=== PATIENT | female | born 1960 | race American Indian/Alaskan Native ===

== ENCOUNTER 2017-04-22 11:47 | Emergency (ER) | payer SELFPAY ==
[2017-04-22 12:54] LABS: Basophils % (Auto) 0.9 % (0.0-1.8); Eosinophils % (Auto) 4.1 % (0.0-4.3); Hematocrit 36.4 % (30.3-42.9); Hemoglobin 11.7 gm/dl (10.1-14.3); Mean Corpuscular HGB Conc 32 % (30-34); Mean Corpuscular Hemoglobin 27 pg (28-32); Mean Corpuscular Volume 84 fl (79-97); Platelet Count 184 K/mm3 (140-440); Red Blood Count 4.34 M/mm3 (3.65-5.03); Red Cell Distribution Width 14.4 % (13.2-15.2)
[2017-04-22 13:08] LABS: Urine Drugs of Abuse Note Disclamer
[2017-04-22 13:30] LABS: Anion Gap 13 mmol/L; BUN/Creatinine Ratio 21.42; Blood Urea Nitrogen 15 mg/dL (7-17); Calcium 8.6 mg/dL (8.4-10.2); Carbon Dioxide 27 mmol/L (22-30); Chloride 107.8 mmol/L (98-107); Glucose 86 mg/dL (65-100); Potassium 4.4 mmol/L (3.6-5.0); Sodium 143 mmol/L (137-145)
--- NOTE | 2017-04-22 19:27 | Emergency Department Report ---
ED Psych HPI - General Chief Complaint: Psych Stated Complaint: DEPRESSION Time Seen by Provider: 04/22/17 18:11 Source: patient Mode of arrival: Ambulatory - History of Present Illness Initial Comments: Patient is a 56-year-old female past medical history of opiate abuse who presents with body aches and pains. She states her body aches are a 6 out of 10. Occur all throughout her body nothing makes it better or worse. She states that she is also nauseous. She says since been a couple days and she's used Percocet or oxycodone. She states that she is use of Percocet and oxycodone for her depression and that she would like to stop. - Related Data Previous Rx's Medication Instructions Recorded Last Taken Type Acetaminophen/Codeine [Tylenol #3] 1 tab PO Q4HR PRN #14 tablet 04/28/16 Unknown Rx Cyclobenzaprine [Flexeril] 10 mg PO TID PRN #20 tablet 04/28/16 Unknown Rx predniSONE [Deltasone] 50 mg PO QDAY #5 tab 04/28/16 Unknown Rx traMADol [Ultram 50 MG tab] 50 mg PO BID PRN #14 tablet 06/28/16 Unknown Rx cloNIDine [Catapres] 0.1 mg PO BID PRN #20 tablet 04/22/17 Unknown Rx hydrOXYzine HCL [Atarax] 25 mg PO Q6HR PRN #20 tablet 04/22/17 Unknown Rx Allergies Allergy/AdvReac Type Severity Reaction Status Date / Time No Known Allergies Allergy Verified 04/28/16 01:18 ED Review of Systems ROS: Stated complaint: DEPRESSION Other details as noted in HPI Constitutional: denies: chills, fever Eyes: denies: eye pain, eye discharge, vision change ENT: denies: ear pain, throat pain Respiratory: denies: cough, shortness of breath, wheezing Cardiovascular: denies: chest pain, palpitations Endocrine: no symptoms reported Gastrointestinal: denies: abdominal pain, nausea, diarrhea Genitourinary: denies: urgency, dysuria, discharge Musculoskeletal: arthralgia, myalgia. denies: back pain, joint swelling Skin: denies: rash, lesions Neurological: denies: headache, weakness, paresthesias Psychiatric: denies: anxiety, depression Hematological/Lymphatic: denies: easy bleeding, easy bruising ED Past Medical Hx - Past Medical History Additional medical history: sciatica - ight leg pain - Surgical History Additional Surgical History: Partial Hyst - Social History Smoking Status: Current Every Day Smoker Substance Use Type: None - Medications Home Medications: Home Medications Medication Instructions Recorded Confirmed Last Taken Type Acetaminophen/Codeine [Tylenol #3] 1 tab PO Q4HR PRN #14 tablet 04/28/16 Unknown Rx Cyclobenzaprine [Flexeril] 10 mg PO TID PRN #20 tablet 04/28/16 Unknown Rx predniSONE [Deltasone] 50 mg PO QDAY #5 tab 04/28/16 Unknown Rx traMADol [Ultram 50 MG tab] 50 mg PO BID PRN #14 tablet 06/28/16 Unknown Rx cloNIDine [Catapres] 0.1 mg PO BID PRN #20 tablet 04/22/17 Unknown Rx hydrOXYzine HCL [Atarax] 25 mg PO Q6HR PRN #20 tablet 04/22/17 Unknown Rx ED Physical Exam - General Limitations: No Limitations General appearance: alert, in no apparent distress - Head Head exam: Present: atraumatic, normocephalic - Eye Eye exam: Present: normal appearance - ENT ENT exam: Present: mucous membranes moist - Neck Neck exam: Present: normal inspection - Respiratory Respiratory exam: Present: normal lung sounds bilaterally. Absent: respiratory distress - Cardiovascular Cardiovascular Exam: Present: regular rate, normal rhythm. Absent: systolic murmur, diastolic murmur, rubs, gallop - GI/Abdominal GI/Abdominal exam: Present: soft, normal bowel sounds - Extremities Exam Extremities exam: Present: normal inspection - Back Exam Back exam: Present: normal inspection - Neurological Exam Neurological exam: Present: alert, oriented X3 - Psychiatric Psychiatric exam: Present: normal affect, normal mood - Skin Skin exam: Present: warm, dry, intact, normal color. Absent: rash ED Course Vital Signs 04/22/17 04/22/17 12:18 20:40 Temperature 98.4 F 98 F Pulse Rate 67 84 Respiratory 18 Rate Blood Pressure 131/86 Blood Pressure 145/72 [Left] O2 Sat by Pulse 100 Oximetry ED Medical Decision Making - Lab Data Result diagrams: 04/22/17 12:28 04/22/17 12:28 Lab Results 04/22/17 04/22/17 04/22/17 Range/Units 12:28 12:28 12:28 WBC 6.0 (4.5-11.0) K/mm3 RBC 4.34 (3.65-5.03) M/mm3 Hgb 11.7 (10.1-14.3) gm/dl Hct 36.4 (30.3-42.9) % MCV 84 (79-97) fl MCH 27 L (28-32) pg MCHC 32 (30-34) % RDW 14.4 (13.2-15.2) % Plt Count 184 (140-440) K/mm3 Lymph % (Auto) 37.4 H (13.4-35.0) % [place] % (Auto) 7.3 (0.0-7.3) % Eos % (Auto) 4.1 (0.0-4.3) % Baso % (Auto) 0.9 (0.0-1.8) % Lymph # 2.2 (1.2-5.4) K/mm3 [place] # 0.4 (0.0-0.8) K/mm3 Eos # 0.2 (0.0-0.4) K/mm3 Baso # 0.1 (0.0-0.1) K/mm3 Seg Neutrophils % 50.3 (40.0-70.0) % Seg Neutrophils # 3.0 (1.8-7.7) K/mm3 Sodium 143 (137-145) mmol/L Potassium 4.4 (3.6-5.0) mmol/L Chloride 107.8 H (98-107) mmol/L Carbon Dioxide 27 (22-30) mmol/L Anion Gap 13 mmol/L BUN 15 (7-17) mg/dL Creatinine 0.7 (0.7-1.2) mg/dL Estimated GFR > 60 ml/min BUN/Creatinine Ratio 21.42 % Glucose 86 (65-100) mg/dL Calcium 8.6 (8.4-10.2) mg/dL Urine Opiates Screen Urine Methadone Screen Ur Barbiturates Screen Ur Phencyclidine Scrn Ur Amphetamines Screen U Benzodiazepines Scrn Urine Cocaine Screen U Marijuana (THC) Screen Drugs of Abuse Note Plasma/Serum Alcohol < 0.01 (0-0.07) gm% 04/22/17 Range/Units 12:41 WBC (4.5-11.0) K/mm3 RBC (3.65-5.03) M/mm3 Hgb (10.1-14.3) gm/dl Hct (30.3-42.9) % MCV (79-97) fl MCH (28-32) pg MCHC (30-34) % RDW (13.2-15.2) % Plt Count (140-440) K/mm3 Lymph % (Auto) (13.4-35.0) % [place] % (Auto) (0.0-7.3) % Eos % (Auto) (0.0-4.3) % Baso % (Auto) (0.0-1.8) % Lymph # (1.2-5.4) K/mm3 [place] # (0.0-0.8) K/mm3 Eos # (0.0-0.4) K/mm3 Baso # (0.0-0.1) K/mm3 Seg Neutrophils % (40.0-70.0) % Seg Neutrophils # (1.8-7.7) K/mm3 Sodium (137-145) mmol/L Potassium (3.6-5.0) mmol/L Chloride (98-107) mmol/L Carbon Dioxide (22-30) mmol/L Anion Gap mmol/L BUN (7-17) mg/dL Creatinine (0.7-1.2) mg/dL Estimated GFR ml/min BUN/Creatinine Ratio % Glucose (65-100) mg/dL Calcium (8.4-10.2) mg/dL Urine Opiates Screen Presumptive negative Urine Methadone Screen Presumptive negative Ur Barbiturates Screen Presumptive negative Ur Phencyclidine Scrn Presumptive negative Ur Amphetamines Screen Presumptive negative U Benzodiazepines Scrn Presumptive negative Urine Cocaine Screen Presumptive negative U Marijuana (THC) Screen Presumptive negative Drugs of Abuse Note Disclamer Plasma/Serum Alcohol (0-0.07) gm% - Medical Decision Making Chief medical diagnosis: Opiate withdrawal Differential medical diagnoses substance induced mood disorder, depression, metabolic abnormality CBC, CMP, urine drug screen and 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 Mental health worker has a cyst patient patient does not need a 1013. Patient has no suicidal or homicidal ideation she just wants resources to help her with her opiate withdrawal. I will give patient Atarax and clonidine. Discussed plan with patient and she agrees. Patient is alert and oriented 4 and expresses goal seeking behavior. Critical care attestation.: If time is entered above; I have spent that time in minutes in the direct care of this critically ill patient, excluding procedure time. ED Disposition Clinical Impression: Opiate withdrawal Disposition: DC- TO HOME OR SELFCARE Is pt being admited?: No Does the pt Need Aspirin: No Condition: Stable Instructions: Narcotic Abuse (ED) Prescriptions: cloNIDine [Catapres] 0.1 mg PO BID PRN #20 tablet PRN Reason: withdrawl hydrOXYzine HCL [Atarax] 25 mg PO Q6HR PRN #20 tablet PRN Reason: Agitation Referrals: [facility] [Outside] - 3-5 Days SOMMER LEDBETTER MD [Staff Physician] - 3-5 Days
[2017-04-22 23:32] VITALS: BP 145/72
== END 2017-04-22 23:42 | disposition home or self-care (01) ==
LOC: ED 11:47
DX: F11.23 Opioid dependence with withdrawal (principal); F17.200 Nicotine dependence, unspecified, uncomplicated; Z90.710 Acquired absence of both cervix and uterus; Z79.899 Other long term (current) drug therapy
CPT/HCPCS: 36415; 80048; 80307; 85025; 99284; G0480; 80320

== ENCOUNTER 2017-05-14 15:07 | Emergency (ER) | payer SELFPAY ==
[2017-05-14 15:24] VITALS: BP 124/70
[2017-05-14 16:06] LABS: Basophils % (Auto) 1.1 % (0.0-1.8); Eosinophils % (Auto) 5.4 % (0.0-4.3); Hemoglobin 12.9 gm/dl (10.1-14.3); Mean Corpuscular HGB Conc 33 % (30-34); Mean Corpuscular Hemoglobin 27 pg (28-32); Mean Corpuscular Volume 81 fl (79-97); Platelet Count 211 K/mm3 (140-440); Red Blood Count 4.79 M/mm3 (3.65-5.03); Red Cell Distribution Width 14.3 % (13.2-15.2); White Blood Count 5.9 K/mm3 (4.5-11.0)
[2017-05-14 16:12] LABS: Anion Gap 15 mmol/L; BUN/Creatinine Ratio 24; Blood Urea Nitrogen 19 mg/dL (7-17); Calcium 9.4 mg/dL (8.4-10.2); Carbon Dioxide 25 mmol/L (22-30); Glucose 93 mg/dL (65-100); Potassium 4.2 mmol/L (3.6-5.0); Sodium 140 mmol/L (137-145)
== END 2017-05-14 22:00 | disposition left against medical advice (07) ==
LOC: ED 15:07
DX: R07.9 Chest pain, unspecified (principal); Z53.21 Procedure and treatment not carried out due to patient leaving prior to being seen by health care provider
CPT/HCPCS: 36415; 80048; 84484; 85025; 93005; 93010

== ENCOUNTER 2017-05-15 23:40 | Emergency (ER) | payer SELFPAY ==
[2017-05-16] MEDS ORDERED: MOTRIN PO ONE (07:29)
--- NOTE | 2017-05-16 07:29 | Emergency Department Report ---
HPI - General Chief Complaint: Sore Throat Time Seen by Provider: 05/16/17 06:59 - HPI HPI: Patient here report that she has a fever, pain in throat, right ear and left flank pain. She reports frequency and burning with urination with strong smelling urine. Denies any blood in her urine. Denies any shortness of breath or chest pain. She says she took [id number] cough and cold medicine but it didn't help her. Pain to left flank is 8 out of 10 and pain to right ear is 8 out of 10 and pain to her throat is 10 of 10. Denies any drooling or difficulty swallowing. Denies any facial pain or pressure. Denies any abdominal or lower back pain. Pain with urination burning pain but better without urinating. Pain is worse with swallowing and eating and. Flank pain is constant. ED Past Medical Hx - Past Medical History Previous Medical History?: Yes Additional medical history: sciatica - ight leg pain - Surgical History Past Surgical History?: Yes Additional Surgical History: Partial Hyst, x4 - Family History Family history: hypertension - Social History Smoking Status: Light Tobacco Smoker Substance Use Type: None - Medications Home Medications: Home Medications Medication Instructions Recorded Confirmed Last Taken Type Acetaminophen/Codeine [Tylenol #3] 1 tab PO Q4HR PRN #14 tablet 04/28/16 Unknown Rx Cyclobenzaprine [Flexeril] 10 mg PO TID PRN #20 tablet 04/28/16 Unknown Rx predniSONE [Deltasone] 50 mg PO QDAY #5 tab 04/28/16 Unknown Rx traMADol [Ultram 50 MG tab] 50 mg PO BID PRN #14 tablet 06/28/16 Unknown Rx cloNIDine [Catapres] 0.1 mg PO BID PRN #20 tablet 04/22/17 Unknown Rx hydrOXYzine HCL [Atarax] 25 mg PO Q6HR PRN #20 tablet 04/22/17 Unknown Rx Cetirizine HCl [ZyrTEC] 10 mg PO QAM #14 capsule 05/16/17 Unknown Rx Fluticasone [Flonase] 1 spray NS QDAY #1 bottle 05/16/17 Unknown Rx Ibuprofen [Motrin] 600 mg PO Q8H PRN #15 tablet 05/16/17 Unknown Rx Sulfamethoxazole/Trimethoprim 1 each PO BID #20 tablet 05/16/17 Unknown Rx [Bactrim DS TAB] ED Review of Systems ROS: Stated complaint: THROAT, R EAR & LEFT SIDE PAIN Other details as noted in HPI Comment: All other systems reviewed and negative Constitutional: fever. denies: chills, malaise, weakness Eyes: denies: eye pain, eye discharge, vision change ENT: ear pain, throat pain. denies: dental pain, congestion Respiratory: cough. denies: orthopnea, shortness of breath, SOB with exertion, SOB at rest, stridor, wheezing Cardiovascular: denies: chest pain, palpitations, dyspnea on exertion, edema, syncope Gastrointestinal: abdominal pain, other (left flank pain). denies: nausea, vomiting, diarrhea, constipation, hematemesis, melena, hematochezia Genitourinary: dysuria, frequency. denies: urgency, hematuria, discharge Musculoskeletal: denies: back pain, joint swelling, arthralgia, myalgia Skin: denies: rash Neurological: denies: headache, weakness, numbness, paresthesias, confusion, abnormal gait, vertigo Physical Exam - Physical Exam Vital Signs: Vital Signs 05/16/17 00:22 Temperature 99 F Pulse Rate 75 Respiratory 16 Rate Blood Pressure 144/75 O2 Sat by Pulse 100 Oximetry General: A 56-year-old female well-nourished well-developed in no acute distress. Physical Exam: Head: Normocephalic, atraumatic, no abrasion, no bruising and no contusion. Eyes: Biateral pupils equal and reactive to light, bilateral EOM intact.. Bilateral conjunctival and sclera without injection, normal accommodation. Ears: Bilateral EAC without any redness drainage or swelling, bilateral TM just said without erythema .bilateral tragus is normal and nontender. No auricular abnormality. No Mastoid bones tenderness. Nose: Moist, erythema and congested with clear drainage. Maxillary or frontal sinus tenderness. Mouth: Positive pharyngeal erythema. Uvula is midline and oral airways patent. Moist and tongue is normal. No peritonsillar abscess. Abdomen: Non-Tender to palpation in all quadrants, negative CVA tenderness bilaterally, normal bowel sounds in all quadrants. No guarding no rebound tenderness Neck: Supple,No Cervical adenopathy, full range of motion and no C-spine tenderness. No swelling or tracheal deviation Cardiovascular: S1, S2. Regular rate and rhythm. No murmur. Capillary refill is less then 3 seconds. Lungs: Clear to auscultate bilaterally. No rhonchi, wheezes or rales. No chest wall tenderness. Normal work of breathing MSK: Strength 5/5 in all extremities. No joint deformity or crepitus. Normal inspection. Full range of motion to all extremities Extremities: No clubbing, cyanosis or edema. +2 pulses. No neurovascular compromise Skin: Clean, dry and intact. No rash or lesions. Psych: Normal mood and behavior. ED Course Vital Signs 05/16/17 00:22 Temperature 99 F Pulse Rate 75 Respiratory 16 Rate Blood Pressure 144/75 O2 Sat by Pulse 100 Oximetry - Reevaluation(s) Reevaluation #1: 05/16/17 07:58 Patient given Rocephin 1 g IM in the emergency room to cover urinary tract infection and she was also given Motrin 800 mg for sore throat and right ear pain. No adverse reaction noted. ED Medical Decision Making - Lab Data Lab Results 05/16/17 Range/Units 07:23 Urine Color Yellow (Yellow) Urine Turbidity Clear (Clear) Urine pH 5.0 (5.0-7.0) Ur Specific [place] 1.024 (1.003-1.030) Urine Protein <15 mg/dl (Negative) mg/dL Urine Glucose (UA) Neg (Negative) mg/dL Urine Ketones Neg (Negative) mg/dL Urine Blood Neg (Negative) Urine Nitrite Neg (Negative) Urine Bilirubin Neg (Negative) Urine Urobilinogen < 2.0 (<2.0) mg/dL Ur Leukocyte Esterase Mod (Negative) Urine WBC (Auto) 11.0 H (0.0-6.0) /HPF Urine RBC (Auto) 8.0 (0.0-6.0) /HPF U Epithel Cells (Auto) 5.0 (0-13.0) /HPF Urine Bacteria (Auto) 2+ (Negative) /HPF Urine Mucus 2+ /HPF Urine culture pending Strep culture pending Rapid Strep negative - Medical Decision Making ED course: Sent here report that she has cold symptoms to include sore throat, fever and right ear pain. She was thought to have upper respiratory tract infection which is viral in nature. This was explained to patient and she remains afebrile in the emergency room. I also informed her that her strep test is negative. I explained to her that I'll send her home on Motrin for sore throat and right ear pain, Zyrtec and Flonase. Given Motrin 800 mg in emergency room for pain. Had complained of urinary symptoms to include urinary frequency, dysuria and foul-smelling urine .I also stated to her that her urine is positive for bladder infection. She has bacteria, white blood cell and moderate leukocyte Estrace. She is given Rocephin 1 g IM in emergency room to cover UTI and will be placed on Bactrim DS. Patient had voiced that she had taken Macrobid before but it does not agree with her stomach so I chose to place her on Bactrim DS. Patient is stable discharge home in stable condition and voices understanding of discharge instructions with prescription for Motrin , Flonase, Zyrtec and Bactrim DS. I explained to her that she will need to follow up with her primary care physician and 3 days and if she doesn't have one that she'll need to follow up at [facility] to call this morning to schedule an appointment. Critical care attestation.: If time is entered above; I have spent that time in minutes in the direct care of this critically ill patient, excluding procedure time. ED Disposition Clinical Impression: Acute cystitis without hematuria, Left flank pain, Dysuria, Viral upper respiratory tract infection with cough, Otalgia of right ear Pharyngitis Qualifiers: Pharyngitis/tonsillitis etiology: unspecified etiology Qualified Code(s): J02.9 - Acute pharyngitis, unspecified Disposition: TO HOME OR SELFCARE Is pt being admited?: No Does the pt Need Aspirin: No Condition: Stable Instructions: Upper Respiratory Infection (ED), Dysuria (ED), Urinary Tract Infection in Women (ED), Earache (ED), Pharyngitis (ED) Additional Instructions: increase your fluid intake Primary care physician Takes Zyrtec and Flonase for upper respiratory tract infection Take Motrin as prescribed for pain Take Bactrim DS antibiotic. Please take as prescribed and take all medication Prescriptions: Cetirizine HCl [ZyrTEC] 10 mg PO QAM #14 capsule Fluticasone [Flonase] 1 spray NS QDAY #1 bottle Ibuprofen [Motrin] 600 mg PO Q8H PRN #15 tablet PRN Reason: Pain Sulfamethoxazole/Trimethoprim [Bactrim DS TAB] 1 each PO BID #20 tablet Referrals: [facility] [Outside] - 05/20/17 PRIMARY CARE [Primary Care Provider] - 05/20/17 Forms: Work/School Release Form(ED)
[2017-05-16 07:45] LABS: Bacteria,Urine 2+ /HPF (Negative); Bilirubin,Urine NEG (Negative); Blood,Urine NEG (Negative); Ketones,Urine NEG (Negative); Leukocyte Esterase,Urine MOD (Negative); Mucus,Urine 2+ /HPF; Nitrite,Urine NEG (Negative); Protein,Urine <15 mg/dL mg/dL (Negative); Urobilinogen,Urine < 2.0 mg/dL (<2.0)
[2017-05-16] MEDS ORDERED: XYLOCAINE 1% MPF 5 mL INFILTRATI ONE (07:51)
[2017-05-16] MEDS ORDERED: ROCEPHIN IM STA (07:51)
[2017-05-16 08:23] VITALS: BP 150/59
== END 2017-05-16 08:20 | disposition home or self-care (01) ==
LOC: ED 23:40
DX: N30.90 Cystitis, unspecified without hematuria (principal); J06.9 Acute upper respiratory infection, unspecified; J02.9 Acute pharyngitis, unspecified
CPT/HCPCS: 81001; 87086; 87116; 87430; 96372; 99283; J0696

== ENCOUNTER 2018-11-28 16:04 | Emergency (ER) | payer OTHER ==
[2018-11-28 16:26] VITALS: BP 154/67
--- NOTE | 2018-11-28 16:28 | Emergency Department Report ---
ED ENT HPI - General Chief complaint: Dental/Oral Stated complaint: FACE SWOLLEN/TOOTHACHE Source: patient Mode of arrival: Ambulatory Limitations: No Limitations - History of Present Illness Initial comments: 58 y/o female comes in on right upper tooth pain times 3 days. Having right side facial pain. Is a smoker. No fever. Is aware of dental problems. NKDA. PMH none. Meds none. NKDA. MD complaint: tooth pain -: days(s) (3) Location: tooth # (5,3) Severity: severe Severity scale (0 -10): 10 Quality: sharp Consistency: constant Improves with: other medication Context- Dental: history of dental caries, poor dental care Associated Symptoms: toothache - Related Data Previous Rx's Medication Instructions Recorded Last Taken Type Cyclobenzaprine [Flexeril] 10 mg PO TID PRN #20 tablet 04/28/16 Unknown Rx predniSONE [Deltasone] 50 mg PO QDAY #5 tab 04/28/16 Unknown Rx traMADol [Ultram 50 MG tab] 50 mg PO BID PRN #14 tablet 06/28/16 Unknown Rx cloNIDine [Catapres] 0.1 mg PO BID PRN #20 tablet 04/22/17 Unknown Rx hydrOXYzine HCL [Atarax] 25 mg PO Q6HR PRN #20 tablet 04/22/17 Unknown Rx Cetirizine HCl [ZyrTEC] 10 mg PO QAM #14 capsule 05/16/17 Unknown Rx Fluticasone [Flonase] 1 spray NS QDAY #1 bottle 05/16/17 Unknown Rx Sulfamethoxazole/Trimethoprim 1 each PO BID #20 tablet 05/16/17 Unknown Rx [Bactrim DS TAB] Acetaminophen/Codeine [Tylenol 1 tab PO Q4HR PRN #14 tablet 11/28/18 Unknown Rx /Codeine # 3 tab] Amoxicillin [Amoxicillin TAB] 875 mg PO BID #20 tablet 11/28/18 Unknown Rx Ibuprofen [Motrin 600 MG tab] 600 mg PO Q8H PRN #15 tablet 11/28/18 Unknown Rx Allergies Allergy/AdvReac Type Severity Reaction Status Date / Time No Known Allergies Allergy Verified 04/28/16 01:18 ED Dental HPI - General Chief complaint: Dental/Oral Stated complaint: FACE SWOLLEN/TOOTHACHE Source: patient Mode of arrival: Ambulatory Limitations: No Limitations - Related Data Previous Rx's Medication Instructions Recorded Last Taken Type Cyclobenzaprine [Flexeril] 10 mg PO TID PRN #20 tablet 04/28/16 Unknown Rx predniSONE [Deltasone] 50 mg PO QDAY #5 tab 04/28/16 Unknown Rx traMADol [Ultram 50 MG tab] 50 mg PO BID PRN #14 tablet 06/28/16 Unknown Rx cloNIDine [Catapres] 0.1 mg PO BID PRN #20 tablet 04/22/17 Unknown Rx hydrOXYzine HCL [Atarax] 25 mg PO Q6HR PRN #20 tablet 04/22/17 Unknown Rx Cetirizine HCl [ZyrTEC] 10 mg PO QAM #14 capsule 05/16/17 Unknown Rx Fluticasone [Flonase] 1 spray NS QDAY #1 bottle 05/16/17 Unknown Rx Sulfamethoxazole/Trimethoprim 1 each PO BID #20 tablet 05/16/17 Unknown Rx [Bactrim DS TAB] Acetaminophen/Codeine [Tylenol 1 tab PO Q4HR PRN #14 tablet 11/28/18 Unknown Rx /Codeine # 3 tab] Amoxicillin [Amoxicillin TAB] 875 mg PO BID #20 tablet 11/28/18 Unknown Rx Ibuprofen [Motrin 600 MG tab] 600 mg PO Q8H PRN #15 tablet 11/28/18 Unknown Rx Allergies Allergy/AdvReac Type Severity Reaction Status Date / Time No Known Allergies Allergy Verified 04/28/16 01:18 ED Review of Systems ROS: Stated complaint: FACE SWOLLEN/TOOTHACHE Other details as noted in HPI Comment: All other systems reviewed and negative ED Past Medical Hx - Past Medical History Previous Medical History?: No Additional medical history: sciatica - ight leg pain - Surgical History Past Surgical History?: Yes Additional Surgical History: Partial Hyst, x4 - Social History Smoking Status: Light Tobacco Smoker Substance Use Type: None - Medications Home Medications: Home Medications Medication Instructions Recorded Confirmed Last Taken Type Cyclobenzaprine [Flexeril] 10 mg PO TID PRN #20 tablet 04/28/16 Unknown Rx predniSONE [Deltasone] 50 mg PO QDAY #5 tab 04/28/16 Unknown Rx traMADol [Ultram 50 MG tab] 50 mg PO BID PRN #14 tablet 06/28/16 Unknown Rx cloNIDine [Catapres] 0.1 mg PO BID PRN #20 tablet 04/22/17 Unknown Rx hydrOXYzine HCL [Atarax] 25 mg PO Q6HR PRN #20 tablet 04/22/17 Unknown Rx Cetirizine HCl [ZyrTEC] 10 mg PO QAM #14 capsule 05/16/17 Unknown Rx Fluticasone [Flonase] 1 spray NS QDAY #1 bottle 05/16/17 Unknown Rx Sulfamethoxazole/Trimethoprim 1 each PO BID #20 tablet 05/16/17 Unknown Rx [Bactrim DS TAB] Acetaminophen/Codeine [Tylenol 1 tab PO Q4HR PRN #14 tablet 11/28/18 Unknown Rx /Codeine # 3 tab] Amoxicillin [Amoxicillin TAB] 875 mg PO BID #20 tablet 11/28/18 Unknown Rx Ibuprofen [Motrin 600 MG tab] 600 mg PO Q8H PRN #15 tablet 11/28/18 Unknown Rx ED Physical Exam - General Limitations: No Limitations (5,3) General appearance: alert, in no apparent distress - Head Head exam: Present: atraumatic, normocephalic - Eye Eye exam: Present: EOMI - ENT ENT exam: Present: mucous membranes moist, other (right side mild swelling of face) - Expanded ENT Exam Expanded Teeth exam: Present: dental tenderness # - Neck Neck exam: Present: full ROM - Neurological Exam Neurological exam: Present: alert, oriented X3, normal gait - Psychiatric Psychiatric exam: Present: normal affect, normal mood - Skin Skin exam: Present: warm, dry, intact, normal color. Absent: rash ED Medical Decision Making - Medical Decision Making Complete antibiotic pain medication as prescribed follow up with your Dentist. Critical care attestation.: If time is entered above; I have spent that time in minutes in the direct care of this critically ill patient, excluding procedure time. ED Disposition Clinical Impression: Pain, dental Disposition: DC-01 TO HOME OR SELFCARE Is pt being admited?: No Does the pt Need Aspirin: No Condition: Stable Instructions: Toothache (ED) Additional Instructions: Complete antibiotics as prescribed pain medication as prescribed. Follow up with a dentist in the next 3-4 days. Prescriptions: Amoxicillin [Amoxicillin TAB] 875 mg PO BID #20 tablet Ibuprofen [Motrin 600 MG tab] 600 mg PO Q8H PRN #15 tablet PRN Reason: Pain Acetaminophen/Codeine [Tylenol /Codeine # 3 tab] 1 tab PO Q4HR PRN #14 tablet PRN Reason: Pain Referrals: [facility] [Outside] - 3-5 Days [facility] [Outside] - 3-5 Days [facility] [Outside] - 3-5 Days
== END 2018-11-28 16:47 | disposition home or self-care (01) ==
LOC: ED 16:04
DX: K08.89 Other specified disorders of teeth and supporting structures (principal); F17.200 Nicotine dependence, unspecified, uncomplicated; Z90.710 Acquired absence of both cervix and uterus; Z79.899 Other long term (current) drug therapy
CPT/HCPCS: 99282

== ENCOUNTER 2019-09-04 19:26 | Inpatient (IN) | payer OTHER ==
[2019-09-04] MEDS ORDERED: ASPIRIN 325 MG TAB PO ONE (21:25)
--- NOTE | 2019-09-04 21:30 | Event Note ---
ED Screening Note Date of service: 09/04/19 Time: 21:27 ED Screening Note: Patient is a 59 yo AA female who is a tobacco smoker but otherwise with no other medical history who presents to the ED with c/o acute onset persistent intermittent left sided chest pain with palpitations for the last 12 hours. Patient also c/o nausea and vomiting for 24 hours. Patient denies dyspnea, dizziness, abdominal pain, cough, fever, chills or neck pain and syncope. In triage the patient is alert and oriented x3 and is in no acute distress. This initial assessment/diagnostic orders/clinical plan/treatment(s) is/are subject to change based on patients health status, clinical progression and re-assessment by fellow clinical providers in the ED. Further treatment and workup at subsequent clinical providers discretion. Patient/guardian urged not to elope from the ED as their condition may be serious if not clinically assessed and managed. Initial orders include: cbc, cmp, troponin, chest x-ray, BNP, PT, PTT, d-dimer, aspirin
--- NOTE | 2019-09-04 21:54 | XRay Report ---
CHEST 1 VIEW INDICATION: MAIN: chest pain; Left CP started today, pain does not radiate. COMPARISON: None. FINDINGS: Support devices: None. Heart: Within normal limits. Lungs/Pleura: No acute air space or interstitial disease. Additional findings: None. IMPRESSION: No acute abnormality. Signer Name: Jagdish Ghosh MD Signed: 09/04/2019 9:50 PM Workstation Name: [id number]
[2019-09-04 21:58] LABS: Basophils # (Auto) 0.1 K/mm3 (0.0-0.1); Eosinophils # (Auto) 0.2 K/mm3 (0.0-0.4); Eosinophils % (Auto) 2.7 % (0.0-4.3); Hematocrit 40.3 % (30.3-42.9); Hemoglobin 13.1 gm/dl (10.1-14.3); Lymphocytes # (Auto) 2.9 K/mm3 (1.2-5.4); Lymphocytes % (Auto) 38.2 % (13.4-35.0); Mean Corpuscular HGB Conc 33 % (30-34); Mean Corpuscular Volume 81 fl (79-97); Monocytes # (Auto) 0.6 K/mm3 (0.0-0.8); Monocytes % (Auto) 8.7 % (0.0-7.3); Platelet Count 226 K/mm3 (140-440); Red Cell Distribution Width 14.5 % (13.2-15.2)
[2019-09-04 22:02] LABS: INR 0.99 (0.87-1.13)
[2019-09-04 22:03] LABS: Partial Thromboplastin Time 27.9 Sec. (24.2-36.6)
[2019-09-04 22:11] LABS: Alanine Aminotransferase 10 units/L (7-56); Albumin 3.3 g/dL (3.9-5); BUN/Creatinine Ratio 15; Blood Urea Nitrogen 12 mg/dL (7-17); Hemolysis Index 5
--- NOTE | 2019-09-05 01:35 | Emergency Department Report ---
ED Chest Pain HPI - General Chief Complaint: Chest Pain Stated Complaint: CHEST PAIN/HEART PALPITATIONS Source: patient Mode of arrival: Ambulatory Limitations: No Limitations - History of Present Illness Initial Comments: Patient is a 59 yo AA female who is a tobacco smoker but otherwise with no other medical history who presents to the ED with c/o acute onset persistent intermittent left sided chest pain with palpitations for the last 12 hours. Patient also c/o nausea and vomiting for 24 hours. Patient describes the chest pain as sharp, pressure-like tightness that does not radiate to any other area. Patient also states that she is a heavy coffee drinker, and that she smokes one pack a day. Patient denies dyspnea, dizziness, abdominal pain, cough, fever, chills or neck pain and syncope. -: Sudden, hour(s) (12) Onset: during rest, awoke with symptoms Pain Location: substernal, left chest Pain Radiation: none Severity: moderate Severity scale (0 -10): 6 Quality: tightness, sharp, pressure Consistency: intermittent Improves With: nothing Worsens With: nothing re: nausea, vomting. denies: diaphoresis, dyspnea, sense of impending doom, other Other Symptoms: palpitations. denies: cough, fever, syncope, rash, acid taste in mouth, leg swelling, burping, other Treatments Prior to Arrival: none Aspirin use within the Past 7 Days: (0) No - Related Data On Oral Contraceptives: No Previous Rx's Medication Instructions Recorded Last Taken Type Cyclobenzaprine [Flexeril] 10 mg PO TID PRN #20 tablet 04/28/16 Unknown Rx predniSONE [Deltasone] 50 mg PO QDAY #5 tab 04/28/16 Unknown Rx traMADoL [Ultram 50 MG tab] 50 mg PO BID PRN #14 tablet 06/28/16 Unknown Rx cloNIDine [Catapres] 0.1 mg PO BID PRN #20 tablet 04/22/17 Unknown Rx hydrOXYzine HCL [Atarax] 25 mg PO Q6HR PRN #20 tablet 04/22/17 Unknown Rx Cetirizine HCl [ZyrTEC] 10 mg PO QAM #14 capsule 05/16/17 Unknown Rx Fluticasone [Flonase] 1 spray NS QDAY #1 bottle 05/16/17 Unknown Rx Sulfamethoxazole/Trimethoprim 1 each PO BID #20 tablet 05/16/17 Unknown Rx [Bactrim DS TAB] Acetaminophen/Codeine [Tylenol 1 tab PO Q4HR PRN #14 tablet 11/28/18 Unknown Rx /Codeine # 3 tab] Amoxicillin [Amoxicillin TAB] 875 mg PO BID #20 tablet 11/28/18 Unknown Rx Ibuprofen [Motrin 600 MG tab] 600 mg PO Q8H PRN #15 tablet 11/28/18 Unknown Rx Allergies Allergy/AdvReac Type Severity Reaction Status Date / Time No Known Allergies Allergy Verified 04/28/16 01:18 Heart Score - HEART Score History: Slightly suspicious EKG: Normal Age: 45-65 Risk factors: 1-2 risk factors Troponin: < normal limit HEART Score: 2 - Critical Actions Critical Actions: 0-3 pts:0.9-1.7%risk of adverse cardiac event.Candidate for discharge ED Review of Systems ROS: Stated complaint: CHEST PAIN/HEART PALPITATIONS Other details as noted in HPI Constitutional: denies: chills, fever Eyes: denies: eye pain, eye discharge, vision change ENT: denies: ear pain, throat pain Respiratory: denies: cough, shortness of breath, wheezing Cardiovascular: chest pain, palpitations. denies: dyspnea on exertion, syncope, paroxysmal nocturnal dyspnea Endocrine: no symptoms reported Gastrointestinal: nausea, vomiting. denies: abdominal pain, diarrhea Genitourinary: denies: urgency, dysuria, discharge Musculoskeletal: denies: back pain, joint swelling, arthralgia Skin: denies: rash, lesions Neurological: denies: headache, weakness, paresthesias Psychiatric: denies: anxiety, depression Hematological/Lymphatic: denies: easy bleeding, easy bruising ED Past Medical Hx - Past Medical History Previous Medical History?: Yes Additional medical history: sciatica - ight leg pain - Surgical History Past Surgical History?: Yes Additional Surgical History: Partial Hyst, x4 - Social History Smoking Status: Current Every Day Smoker Substance Use Type: None - Medications Home Medications: Home Medications Medication Instructions Recorded Confirmed Last Taken Type Cyclobenzaprine [Flexeril] 10 mg PO TID PRN #20 tablet 04/28/16 Unknown Rx predniSONE [Deltasone] 50 mg PO QDAY #5 tab 04/28/16 Unknown Rx traMADoL [Ultram 50 MG tab] 50 mg PO BID PRN #14 tablet 06/28/16 Unknown Rx cloNIDine [Catapres] 0.1 mg PO BID PRN #20 tablet 04/22/17 Unknown Rx hydrOXYzine HCL [Atarax] 25 mg PO Q6HR PRN #20 tablet 04/22/17 Unknown Rx Cetirizine HCl [ZyrTEC] 10 mg PO QAM #14 capsule 05/16/17 Unknown Rx Fluticasone [Flonase] 1 spray NS QDAY #1 bottle 05/16/17 Unknown Rx Sulfamethoxazole/Trimethoprim 1 each PO BID #20 tablet 05/16/17 Unknown Rx [Bactrim DS TAB] Acetaminophen/Codeine [Tylenol 1 tab PO Q4HR PRN #14 tablet 11/28/18 Unknown Rx /Codeine # 3 tab] Amoxicillin [Amoxicillin TAB] 875 mg PO BID #20 tablet 11/28/18 Unknown Rx Ibuprofen [Motrin 600 MG tab] 600 mg PO Q8H PRN #15 tablet 11/28/18 Unknown Rx ED Physical Exam - General Limitations: No Limitations General appearance: alert, in no apparent distress - Head Head exam: Present: atraumatic, normocephalic, normal inspection - Eye Eye exam: Present: normal appearance, PERRL, EOMI Pupils: Present: normal accommodation - ENT ENT exam: Present: normal exam, normal orophraynx, mucous membranes moist, TM's normal bilaterally, normal external ear exam - Neck Neck exam: Present: normal inspection, full ROM - Respiratory Respiratory exam: Present: normal lung sounds bilaterally. Absent: respiratory distress, wheezes, rales, rhonchi, chest wall tenderness, accessory muscle use, decreased breath sounds - Cardiovascular Cardiovascular Exam: Present: regular rate, normal rhythm, normal heart sounds. Absent: systolic murmur, diastolic murmur, rubs, gallop - GI/Abdominal GI/Abdominal exam: Present: soft, normal bowel sounds. Absent: tenderness, guarding, rebound, hyperactive bowel sounds, hypoactive bowel sounds, mass - Extremities Exam Extremities exam: Present: normal inspection, full ROM, normal capillary refill - Back Exam Back exam: Present: normal inspection, full ROM. Absent: tenderness, CVA tenderness (R), CVA tenderness (L), muscle spasm, paraspinal tenderness, vertebral tenderness - Neurological Exam Neurological exam: Present: alert, oriented X3, CN II-XII intact, normal gait, reflexes normal - Psychiatric Psychiatric exam: Present: normal affect, normal mood, anxious - Skin Skin exam: Present: warm, dry, intact, normal color. Absent: rash ED Course Vital Signs 09/04/19 19:49 Temperature 98.8 F Pulse Rate 85 Respiratory 14 Rate Blood Pressure 131/70 O2 Sat by Pulse 100 Oximetry MICHELLE score - Michelle Score Age > 65: (0) No Aspirin use within the Past 7 Days: (0) No 3 or more CAD Risk Factors: (0) No 2 or more Angina events in past 24 hrs: (1) Yes Known CAD with more than 50% Stenosis: (0) No Elevated Cardiac Markers: (0) No ST Deviation Greater than 0.5mm: (0) No MICHELLE Score: 1 ED Medical Decision Making - Lab Data Result diagrams: 09/04/19 21:40 09/04/19 21:40 - EKG Data EKG shows normal: sinus rhythm Rate: normal - EKG Data Interpretation: normal EKG 09/05/19 01:34 EKG shows normal sinus rhythm with a ventricular rate of 72 bpm, no ST or T-wave abnormalities. - Radiology Data Radiology results: report reviewed, image reviewed Chest x-ray shows no acute cardiopulmonary abnormalities or pneumonitis. - Medical Decision Making This is a 59-year-old female with no past medical history except chronic tobacco abuse, who presented to the ED with acute onset persistent left-sided chest pain that she describes as pressure-like, sharp and persistent for over 12 hours and palpitation, nausea and vomiting. In the ED, patient is alert and oriented 3 and is not in distress with normal vital signs. EKG shows normal sinus rhythm with ventricular rate of 72 bpm, and no ST or T-wave modalities. Lab test results were reviewed and all nonactionable including troponin level and d-dimer levels. Chest x-ray shows no acute cardiopulmonary abilities on pneumonitis. Patient's case was discussed with the ED attending physician Dr. Castro who agreed with the plan of care to admit the patient to the hospital for further evaluation due to the patient's heart score of 2 due to the patient's age and risk factor of heavy tobacco abuse. I discussed the patient's case with the hospitalist physician back tender insulation board Dr. Kelley who admitted the patient to hospital. - Differential Diagnosis CAD; Angina; Anxiety; Pneumonia; GERD Critical care attestation.: If time is entered above; I have spent that time in minutes in the direct care of this critically ill patient, excluding procedure time. ED Disposition Clinical Impression: Chest pain in adult, Heart palpitations, Tobacco abuse Disposition: OP ADMIT IP TO THIS HOSP Is pt being admited?: Yes Does the pt Need Aspirin: No Condition: Stable Instructions: Chest Pain (ED) Referrals: PRIMARY CARE, [Primary Care Provider] - 3-5 Days Time of Disposition: 01:40 Print Language: NORWEGIAN
[2019-09-05] MEDS ORDERED: ASPIRIN 325 MG TAB ONE (02:17)
[2019-09-05 02:28] LABS: Bacteria,Urine 3+ /HPF (Negative); Bilirubin,Urine NEG (Negative); Blood,Urine MOD (Negative); Color,Urine Amber (Yellow); Mucus,Urine 2+ /HPF; Protein,Urine <15 mg/dL mg/dL (Negative); Urobilinogen,Urine < 2.0 mg/dL (<2.0)
[2019-09-05 02:30] LABS: Amphetamine Screen,Urine PRESUMPTIVE NEGATIVE; Benzodiazepines Screen,Urine PRESUMPTIVE NEGATIVE; Cannabinoid Screen,Urine PRESUMPTIVE NEGATIVE; Cocaine Screen,Urine PRESUMPTIVE NEGATIVE; Methadone Screen,Urine PRESUMPTIVE NEGATIVE; Opiate Screen,Urine PRESUMPTIVE NEGATIVE
[2019-09-05] MEDS ORDERED: MAGNESIUM HYDROXIDE (MOM) ORAL LIQD UDC PO PRN (02:56)
[2019-09-05] MEDS ORDERED: ACETAMINOPHEN 325 MG TAB PO PRN (02:56)
[2019-09-05] MEDS ORDERED: ONDANSETRON 4 MG/2 ML INJ IV PRN (02:56)
[2019-09-05] MEDS ORDERED: MORPHINE 2 MG/1 ML INJ IV PRN (02:56)
[2019-09-05] MEDS ORDERED: NITROGLYCERIN 0.4 MG TAB SUBL SL PRN (02:56)
--- NOTE | 2019-09-05 03:11 | History and Physical Report ---
History of Present Illness Date of examination: 09/05/19 Date of admission: 09/05/2019 Chief complaint: Chest pain History of present illness: 59-year-old female with no significant past medical history but smokes about a pack of cigarettes on a daily basis presenting to the emergency room today complaining of chest pain and palpitation. This has been ongoing for almost 24 hours. Chest pain is said to be left-sided and has been no radiation. He has had associated nausea and vomiting. She had some mild shortness of breath. Denies any headache or dizziness, denies any fever or chills. Chest pain felt like pressure, no no relieving or exacerbating factor. Patient admits that she she is a heavy coffee drinker. Denies illicit drug use. Evaluation in the emergency room so far has been unremarkable. Past History Past Surgical History: hysterectomy (Partial hysterectomy in 1980), Other (Sciatica) Social history: smoking (Current everyday smoker) Family history: CAD (Both parents had [place]) Medications and Allergies Allergies Allergy/AdvReac Type Severity Reaction Status Date / Time No Known Allergies Allergy Verified 04/28/16 01:18 Home Medications Medication Instructions Recorded Confirmed Last Taken Type No Known Home Medications [No 09/05/19 09/05/19 Unknown History Reported Home Medications] Active Meds: Active Medications Acetaminophen (Tylenol) 650 mg PO Q4H PRN PRN Reason: Pain MILD(1-3)/Fever >100.5/SHOEMAKER Aspirin (Ecotrin) 325 mg PO QDAY ALEXY Magnesium Hydroxide (Milk Of Magnesia) 30 ml PO Q4H PRN PRN Reason: Constipation Morphine Sulfate (Morphine) 2 mg IV Q4H PRN PRN Reason: Pain, Moderate (4-6) Nitroglycerin (Nitrostat) 0.4 mg SL Q5M PRN PRN Reason: Chest Pain Ondansetron HCl (Zofran) 4 mg IV Q8H PRN PRN Reason: Nausea And Vomiting Sodium Chloride (Sodium Chloride Flush Syringe 10 Ml) 10 ml IV BID ALEXY Sodium Chloride (Sodium Chloride Flush Syringe 10 Ml) 10 ml IV PRN PRN PRN Reason: LINE FLUSH Review of Systems Constitutional: no fever, no chills Cardiovascular: chest pain, palpitations, shortness of breath Respiratory: no cough, no hemoptysis Gastrointestinal: nausea, vomiting, no diarrhea Genitourinary Female: no dysuria, no hematuria Musculoskeletal: no neck pain, no low back pain Integumentary: no rash, no pruritis Neurological: no headaches, no change in mentation Exam - Constitutional Vitals: Temp Pulse Resp BP Pulse Ox 98.4 F 70 18 155/47 100 09/05/19 02:27 09/05/19 02:27 09/05/19 02:27 09/05/19 02:27 09/05/19 02:27 General appearance: Present: no acute distress, well-nourished - EENT Eyes: Present: PERRL, EOM intact ENT: hearing intact, clear oral mucosa, dentition normal - Neck Neck: Present: supple, normal ROM - Respiratory Respiratory effort: normal Respiratory: bilateral: CTA - Cardiovascular Rhythm: regular Heart Sounds: Present: S1 & S2 - Extremities Extremities: no ischemia, pulses intact, pulses symmetrical, No edema, Full ROM Peripheral Pulses: within normal limits - Abdominal General gastrointestinal: Present: soft, non-tender, non-distended - Integumentary Integumentary: Present: clear, warm, dry - Psychiatric Psychiatric: appropriate mood/affect, intact judgment & insight, cooperative - Neurologic Neurologic: CNII-XII intact, moves all extremities Results - Labs CBC & Chem 7: 09/05/19 04:41 09/05/19 04:41 Labs: Abnormal lab results 09/04/19 09/04/19 Range/Units 21:40 21:40 MCH 26 L (28-32) pg Lymph % (Auto) 38.2 H (13.4-35.0) % [place] % (Auto) 8.7 H (0.0-7.3) % Glucose 120 H (65-100) mg/dL Total Protein 5.5 L (6.3-8.2) g/dL Albumin 3.3 L (3.9-5) g/dL Assessment and Plan - Patient Problems (1) Chest pain Current Visit: Yes Status: Acute Plan to address problem: We will admit to telemetry. We will monitor serial cardiac enzymes and also monitor EKG. Patient be placed on daily aspirin, sublingual nitroglycerin and IV morphine as needed for chest pain. We will schedule patient for stress test. (2) Tobacco abuse Current Visit: Yes Status: Acute Plan to address problem: Patient counseled on quitting tobacco use. Will offer nicotine patch as needed. (3) DVT prophylaxis Current Visit: Yes Status: Acute Plan to address problem: Patient placed on subcutaneous heparin. (4) Full code status Current Visit: Yes Status: Acute
[2019-09-05 05:22] LABS: Basophils % (Auto) 0.5 % (0.0-1.8); Eosinophils # (Auto) 0.1 K/mm3 (0.0-0.4); Eosinophils % (Auto) 1.2 % (0.0-4.3); Hematocrit 38.3 % (30.3-42.9); Hemoglobin 12.4 gm/dl (10.1-14.3); Lymphocytes % (Auto) 25.7 % (13.4-35.0); Mean Corpuscular HGB Conc 33 % (30-34); Mean Corpuscular Volume 81 fl (79-97); Monocytes # (Auto) 0.6 K/mm3 (0.0-0.8); Platelet Count 207 K/mm3 (140-440); Red Blood Count 4.72 M/mm3 (3.65-5.03); Red Cell Distribution Width 14.7 % (13.2-15.2)
[2019-09-05 05:31] LABS: BUN/Creatinine Ratio 14; Blood Urea Nitrogen 11 mg/dL (7-17); Calcium 8.8 mg/dL (8.4-10.2); Hemolysis Index 1
[2019-09-05 06:17] LABS: Chol/HDL Ratio 4.17 %
[2019-09-05] MEDS ORDERED: REGADENOSON 0.4 MG/5 ML INJ IV ONE ×2 (08:09→08:16)
--- NOTE | 2019-09-05 10:31 | Consultation ---
History of Present Illness Consult date: 09/05/19 Requesting physician: ANASTACIO LAW Consult reason: chest pain History of present illness: 59-year-old female with history of smoking past medical history denies hypertension diabetes cholesterol presents on and off with palpitations last few days with chest pain midsternal no aggravating or relieving factors presented to emergency room cardiac enzymes have been negative here for stress test. Unsure if associated with flulike symptoms. Denies any nausea vomiting cold-like symptoms. His pain is described as pressure-like nonradiating midsternal not with exertion on and off Past History Past Medical History: denies: No medical history Past Surgical History: hysterectomy (Partial hysterectomy in 1980), Other (Sciatica) Social history: smoking (Current everyday smoker) Family history: CAD (Both parents had [place]) Medications and Allergies Allergies Allergy/AdvReac Type Severity Reaction Status Date / Time No Known Allergies Allergy Verified 04/28/16 01:18 Home Medications Medication Instructions Recorded Confirmed Last Taken Type No Known Home Medications [No 09/05/19 09/05/19 Unknown History Reported Home Medications] Active Meds: Active Medications Acetaminophen (Tylenol) 650 mg PO Q4H PRN PRN Reason: Pain MILD(1-3)/Fever >100.5/SHOEMAKER Aspirin (Ecotrin) 325 mg PO QDAY ALEXY Heparin Sodium (Porcine) (Heparin) 5,000 unit SUB-Q Q8HR ALEXY Magnesium Hydroxide (Milk Of Magnesia) 30 ml PO Q4H PRN PRN Reason: Constipation Morphine Sulfate (Morphine) 2 mg IV Q4H PRN PRN Reason: Pain, Moderate (4-6) Nitroglycerin (Nitrostat) 0.4 mg SL Q5M PRN PRN Reason: Chest Pain Ondansetron HCl (Zofran) 4 mg IV Q8H PRN PRN Reason: Nausea And Vomiting Sodium Chloride (Sodium Chloride Flush Syringe 10 Ml) 10 ml IV BID ALEXY Sodium Chloride (Sodium Chloride Flush Syringe 10 Ml) 10 ml IV PRN PRN PRN Reason: LINE FLUSH Review of Systems All systems: negative (as per hpi) Physical Examination Vital Signs Temp Pulse Resp BP Pulse Ox 98.8 F 85 14 131/70 100 09/04/19 19:49 09/04/19 19:49 09/04/19 19:49 09/04/19 19:49 09/04/19 19:49 General appearance: no acute distress, well-nourished HEENT: Positive: PERRL, Mucus Membranes Moist Neck: Positive: neck supple, trachea midline Cardiac: Positive: Reg Rate and Rhythm, S1/S2. Negative: Audible Murmur Lungs: Positive: clear to auscultation, Normal Breath Sounds Neuro: Positive: Grossly Intact Abdomen: Positive: Soft, Active Bowel Sounds. Negative: Tender, Distended Female genitourinary: deferred Skin: Positive: Clear Incision: Cardiac Cath Site Musculoskeletal: No Pain, Normal Range of Motion Extremities: Present: normal. Absent: edema Results 09/05/19 04:41 09/05/19 04:41 Cardiac Enzymes 09/04/19 Range/Units 21:40 AST 15 (5-40) units/L Coagulation 09/04/19 Range/Units 21:40 PT 13.2 (12.2-14.9) Sec. INR 0.99 (0.87-1.13) APTT 27.9 (24.2-36.6) Sec. Lipids 09/05/19 Range/Units 04:41 Triglycerides 110 (2-149) mg/dL Cholesterol 163 (50-199) mg/dL HDL Cholesterol 39 L (40-59) mg/dL Cholesterol/HDL Ratio 4.17 % CBC 09/04/19 09/05/19 Range/Units 21:40 04:41 WBC 7.5 7.6 (4.5-11.0) K/mm3 RBC 5.00 4.72 (3.65-5.03) M/mm3 Hgb 13.1 12.4 (10.1-14.3) gm/dl Hct 40.3 38.3 (30.3-42.9) % Plt Count 226 207 (140-440) K/mm3 Lymph # 2.9 2.0 (1.2-5.4) K/mm3 Moffat # 0.6 0.6 (0.0-0.8) K/mm3 Eos # 0.2 0.1 (0.0-0.4) K/mm3 Baso # 0.1 0.0 (0.0-0.1) K/mm3 Comprehensive Metabolic Panel 09/04/19 09/05/19 Range/Units 21:40 04:41 Sodium 138 140 (137-145) mmol/L Potassium 4.6 4.0 (3.6-5.0) mmol/L Chloride 103.2 104.1 (98-107) mmol/L Carbon Dioxide 25 25 (22-30) mmol/L BUN 12 11 (7-17) mg/dL Creatinine 0.8 0.8 (0.7-1.2) mg/dL Glucose 120 H 115 H (65-100) mg/dL Calcium 9.0 8.8 (8.4-10.2) mg/dL AST 15 (5-40) units/L ALT 10 (7-56) units/L Alkaline Phosphatase 49 (35-129) units/L Total Protein 5.5 L (6.3-8.2) g/dL Albumin 3.3 L (3.9-5) g/dL - Imaging and Cardiology Stress echo: pending EKG interpretations - Telemetry EKG Rhythm: Sinus Rhythm (sinus rhythm no ST-T abnormalities) Assessment and Plan Stress test revealed no significant ischemia with normal LV function patient's chest pain is probably GI in nature discharge her PPI with smoking cessation education follow-up as an outpatient - Patient Problems (1) Chest pain in adult Current Visit: Yes Status: Acute Plan to address problem: Probable GI in nature (2) Heart palpitations Current Visit: Yes Status: Acute (3) Tobacco abuse Current Visit: Yes Status: Acute
[2019-09-05 11:48] VITALS: BP 134/56
--- NOTE | 2019-09-05 12:24 | Treadmill Report ---
READING PHYSICIAN: Dr. Cintron. IMAGING PROTOCOL: The patient received 10 mCi of Technetium 99m Tetrofosmin for resting image and 28 mCi of Technetium 99m Tetrofosmin for stress imaging. The imaging for the whole procedure was completed 30-90 minutes following the initial injection of Technetium 99m Tetrofosmin. The SPECT imaging in the 180 degree arc was performed in the right anterior oblique projection. Computerized reconstruction of the images was performed for analysis. IMAGING RESULTS: Normal cavity size from stress to rest. Normal distribution of radionuclide in the anterior, inferior, septal, and apical regions. Gated SPECT, EF 65% with no wall motion abnormality. The patient infused Lexiscan with no EKG changes. SUMMARY: 1. Negative Lexiscan EKG. 2. Normal rest and stress myocardial perfusion scan. No significant ischemia. No wall motion abnormality. Gated EF of 62%. JOB# [id number] VRM/NTS
--- NOTE | 2019-09-05 12:59 | Discharge Summary ---
Providers - Providers Date of Admission: 09/05/19 03:13 Date of discharge: 09/05/19 Attending physician: ANASTACIO LAW 09/05/19 02:56 Consult to Physician [CONS] Routine Comment: Consulting Provider: SOHAN MCDUFFIE Physician Instructions: Reason For Exam: chest pain Primary care physician: NURSE TECHNICIAN Hospitalization Condition: Stable Pertinent studies: CXR 2d echo Exercise stress test Hospital course: Discharge diagnosis: Chest pain, likely from GERD Tobacco abuse, counseled for quieting Disposition: DC-01 TO HOME OR SELFCARE Time spent for discharge: 34 minutes Core Measure Documentation - Palliative Care Palliative Care/ Comfort Measures: Not Applicable - Core Measures Any of the following diagnoses?: none Exam - Constitutional Vitals: Temp Pulse Resp BP Pulse Ox 98.3 F 58 L 18 134/56 100 09/05/19 08:23 09/05/19 12:00 09/05/19 08:23 09/05/19 10:14 09/05/19 08:23 General appearance: Present: no acute distress, well-nourished - EENT Eyes: Present: PERRL ENT: hearing intact, clear oral mucosa - Neck Neck: Present: supple, normal ROM - Respiratory Respiratory effort: normal Respiratory: bilateral: CTA - Cardiovascular Heart Sounds: Present: S1 & S2. Absent: rub, click - Extremities Extremities: pulses symmetrical, No edema Peripheral Pulses: within normal limits - Abdominal General gastrointestinal: Present: soft, non-tender, non-distended, normal bowel sounds - Integumentary Integumentary: Present: clear, warm, dry - Musculoskeletal Musculoskeletal: gait normal, strength equal bilaterally - Psychiatric Psychiatric: appropriate mood/affect, intact judgment & insight - Neurologic Neurologic: CNII-XII intact, moves all extremities Plan Activity: advance as tolerated Weight Bearing Status: Weight Bear as Tolerated Diet: low fat, low salt Special Instructions: smoking cessation Follow up with: CARROLL YOO MD [Primary Care Provider] - 3-5 Days BRANDEE VIDALES MD [Staff Physician] - 7 Days Prescriptions: Pantoprazole [Protonix] 40 mg PO QDAY #30 tablet
[2019-09-05] MEDS ORDERED: HEPARIN 5,000 UNIT/1 ML VIAL SUB-Q SCH (14:00)
[2019-09-06] MEDS ORDERED: ASPIRIN EC 325 MG TAB PO SCH (10:00)
== END 2019-09-05 15:50 | disposition home or self-care (01) | DRG 392 ==
LOC: ED 19:26 → 4A 09-05 03:13
PROVIDERS: ADMIT Internal Medicine Geriatric Medicine; ATTEND Internal Medicine
DX: K21.9 Gastro-esophageal reflux disease without esophagitis (principal); R00.2 Palpitations; F17.210 Nicotine dependence, cigarettes, uncomplicated; Z71.6 Tobacco abuse counseling; Z90.711 Acquired absence of uterus with remaining cervical stump; Z82.49 Family history of ischemic heart disease and other diseases of the circulatory system
CPT/HCPCS: 36415; 71045; 78452; 80048; 80053; 80061; 80307; 81001; 83880; 84484; 85025; 85379; 85610; 85730; 93005; 93010; 93017; 93306; 99406; G0378; A9502; J1644; J2785

== ENCOUNTER 2021-11-09 15:23 | Emergency (ER) | payer SELFPAY ==
--- NOTE | 2021-11-09 16:08 | Emergency Department Report ---
- General Chief complaint: Extremity Problem,Nontraumatic Stated complaint: SWOLLEN/PAINFUL TOE Time Seen by Provider: 11/09/21 16:02 Source: patient Mode of arrival: Ambulatory Limitations: No Limitations - History of Present Illness Initial comments: Patient comes to the ER complaining of pain of her right fifth toe. She thinks that she has an ingrown nail. She has been trying to pick the nail out. Which I think is caused an infection. She has a red inflamed cellulitic appearing toe. There is no abscess. She is ambulatory. She is neurovascularly intact. No fever or chills. Patient denies any trauma to the foot MD complaint: other -: Gradual, days(s) Tetanus Up to Date: yes Severity: mild Quality: aching Consistency: constant Improves with: none Worsens with: none Associated symptoms: denies other symptoms Treatments Prior to Arrival: none - Related Data Previous Rx's Medication Instructions Recorded Last Taken Type Pantoprazole [Protonix] 40 mg PO QDAY #30 tablet 09/05/19 Unknown Rx Amoxicillin [Trimox CAP] 500 mg PO BID #20 capsule 11/09/21 Unknown Rx Allergies Allergy/AdvReac Type Severity Reaction Status Date / Time No Known Allergies Allergy Verified 04/28/16 01:18 Abscess Boil HPI - HPI Chief Complaint: Extremity Problem,Nontraumatic Stated Complaint: SWOLLEN/PAINFUL TOE Time Seen by Provider: 11/09/21 16:02 Home Medications: Previous Rx's Medication Instructions Recorded Last Taken Type Pantoprazole [Protonix] 40 mg PO QDAY #30 tablet 09/05/19 Unknown Rx Amoxicillin [Trimox CAP] 500 mg PO BID #20 capsule 11/09/21 Unknown Rx Allergies/Adverse Reactions: Allergies Allergy/AdvReac Type Severity Reaction Status Date / Time No Known Allergies Allergy Verified 04/28/16 01:18 ED Review of Systems ROS: Stated complaint: SWOLLEN/PAINFUL TOE Other details as noted in HPI Comment: All other systems reviewed and negative ED Past Medical Hx - Past Medical History Previous Medical History?: Yes Additional medical history: sciatica - ight leg pain - Surgical History Past Surgical History?: Yes Additional Surgical History: Partial Hyst, x4 - Social History Smoking Status: Current Every Day Smoker - Medications Home Medications: Home Medications Medication Instructions Recorded Confirmed Last Taken Type Pantoprazole [Protonix] 40 mg PO QDAY #30 tablet 09/05/19 Unknown Rx Amoxicillin [Trimox CAP] 500 mg PO BID #20 capsule 11/09/21 Unknown Rx ED Physical Exam - General Limitations: No Limitations General appearance: alert, in no apparent distress - Head Head exam: Present: atraumatic, normocephalic - Eye Eye exam: Present: normal appearance - ENT ENT exam: Present: mucous membranes moist - Neck Neck exam: Present: normal inspection - Respiratory Respiratory exam: Present: normal lung sounds bilaterally. Absent: respiratory distress - Cardiovascular Cardiovascular Exam: Present: regular rate, normal rhythm. Absent: systolic murmur, diastolic murmur, rubs, gallop - GI/Abdominal GI/Abdominal exam: Present: soft, normal bowel sounds - Extremities Exam Extremities exam: Present: normal inspection - Back Exam Back exam: Present: normal inspection - Neurological Exam Neurological exam: Present: alert, oriented X3 - Psychiatric Psychiatric exam: Present: normal affect, normal mood - Skin Skin exam: Present: warm, dry, intact, normal color, other (Redness and cellulitis of her right fifth toe: Likely a result of an ingrown nail.). Absent: rash ED Course Vital Signs 11/09/21 15:29 Temperature 98.3 F Pulse Rate 76 Respiratory 15 Rate Blood Pressure 188/77 O2 Sat by Pulse 100 Oximetry ED Medical Decision Making - Medical Decision Making Vital Signs 11/09/21 15:29 Temperature 98.3 F Pulse Rate 76 Respiratory 15 Rate Blood Pressure 188/77 O2 Sat by Pulse 100 Oximetry - Differential Diagnosis Cellulitis/abscess Critical care attestation.: If time is entered above; I have spent that time in minutes in the direct care of this critically ill patient, excluding procedure time. ED Disposition Clinical Impression: Toe infection, Ingrown nail of fifth toe Disposition: 01 HOME / SELF CARE / HOMELESS Is pt being admited?: No Does the pt Need Aspirin: No Condition: Stable Instructions: Ingrown Toenail, Cellulitis, Adult Additional Instructions: Take medication as ordered today for the infectious part of your toe. Once the infection and inflammation goes down follow-up with podiatry. They can reevaluate that toenail. Referral is below. Soak your foot in warm Epson salt baths several times a day. Motrin or Tylenol for pain. Do not pick at your nail or try to cut your nail anymore. Referrals: EDWARD VANEGAS MD [Staff Physician] - 3-5 Days KADI MAYO DPM [Staff Physician] - 3-5 Days Time of Disposition: 16:05
[2021-11-09 16:41] VITALS: BP 142/86
== END 2021-11-09 16:40 | disposition home or self-care (01) ==
LOC: ED 15:23
DX: L60.0 Ingrowing nail (principal); L03.031 Cellulitis of right toe; F17.200 Nicotine dependence, unspecified, uncomplicated; Z98.890 Other specified postprocedural states; Z79.899 Other long term (current) drug therapy
CPT/HCPCS: 99282